=== PATIENT | male | born 1935 | race Hispanic/Latino ===

== ENCOUNTER 2017-01-04 10:14 | Emergency (ER) | payer MEDICARE ==
[2017-01-04 12:03] VITALS: BP 160/78
[2017-01-04] MEDS ORDERED: XYLOCAINE 1% MPF 5 mL INFILTRATI ONE (12:48)
[2017-01-04] MEDS ORDERED: XYLOCAINE 2% INFILTRATI ONE (12:53)
[2017-01-04] MEDS ORDERED: XYLOCAINE 1% 20 mL INFILTRATI ONE (13:07)
[2017-01-04] MEDS ORDERED: TRIPLE ANTIBIOTIC TP ONE (13:23)
--- NOTE | 2017-01-04 13:24 | Emergency Department Report ---
Abscess Boil HPI - HPI Chief Complaint: Skin/Abscess/Foreign Body Stated Complaint: ABCESS ON CHEST Duration: >1 Week Location: Chest Severity: Mild History: Yes Purulent Drainage, No Fever, No Pain, No Numbness, No Foreign Body , No Previous History, No Insect Bite HPI: 81 year old male presents to ED with abscess on mid chest/sternum x3-4 weeks. patient states he had appt with his PCP but his PCP cancelled his appt and sent him to the ED. patient is stable, neurologically intact and in no acute distress. Home Medications: Previous Rx's Medication Instructions Recorded Last Taken Type Metoprolol [Lopressor TAB] 12.5 mg PO BID #60 tablet 10/08/15 Unknown Rx Cephalexin [Keflex] 500 mg PO Q8H #21 cap 01/04/17 Unknown Rx Allergies/Adverse Reactions: Allergies Allergy/AdvReac Type Severity Reaction Status Date / Time No Known Allergies Allergy Verified 01/04/17 11:59 ED Review of Systems ROS: Stated complaint: ABCESS ON CHEST Other details as noted in HPI Constitutional: denies: chills, fever Eyes: denies: eye pain, eye discharge, vision change ENT: denies: ear pain, throat pain Respiratory: denies: cough, shortness of breath, wheezing Cardiovascular: denies: chest pain, palpitations Endocrine: no symptoms reported Gastrointestinal: denies: abdominal pain, nausea, diarrhea Genitourinary: denies: urgency, dysuria Musculoskeletal: denies: back pain, joint swelling, arthralgia Skin: denies: rash, lesions Neurological: denies: headache, weakness, numbness, paresthesias, confusion, abnormal gait, vertigo Psychiatric: denies: anxiety, depression Hematological/Lymphatic: denies: easy bleeding, easy bruising ED Past Medical Hx - Past Medical History Hx Hypertension: Yes Hx Heart Attack/AMI: Yes Hx Congestive Heart Failure: Yes Hx Diabetes: Yes Hx GERD: Yes Additional medical history: high cholesterol - Surgical History Hx Open Heart Surgery: Yes Hx Cholecystectomy: Yes - Social History Smoking Status: Never Smoker Substance Use Type: None - Medications Home Medications: Home Medications Medication Instructions Recorded Confirmed Last Taken Type Metoprolol [Lopressor TAB] 12.5 mg PO BID #60 tablet 10/08/15 Unknown Rx Cephalexin [Keflex] 500 mg PO Q8H #21 cap 01/04/17 Unknown Rx ED Abscess Boil Physical Exam - Exam General: Vital signs noted. No distress. Alert and acting appropriately. Size: 3 cm Exam: Yes Tenderness, Yes Fluctuance, Yes Normal Neurologic Exam, Yes Normal Circulation, No Surrounding Cellulites/Erythema, No Lymphangitis, No Crepitation , No Heart Murmur Exam: abscess present on mid chest/sternum with mild purulent drainage present from head of abscess. I & D Note - I & D Note I & D Note: area prepped with betadine. 1% lidocaine utilized for numbing purposes. moderate amount of drainage obtained. patient tolerated well. wound shallow and unable to pack after I&D. sterile dressing applied with abx ointment. ED Course Vital Signs 01/04/17 12:00 Temperature 98.2 F Pulse Rate 65 Respiratory 16 Rate Blood Pressure 160/78 O2 Sat by Pulse 94 Oximetry Critical care attestation.: If time is entered above; I have spent that time in minutes in the direct care of this critically ill patient, excluding procedure time. ED Medical Decision Making - Medical Decision Making 81 year old male presents to ED with abscess on mid chest/sternum. patient has tolerated I&D well. patient will be placed on PO antibiotics and should return to ED for recheck within 2-3 days. patient is stable, neurologically intact and in no acute distress. ED Disposition Clinical Impression: Chest wall abscess Disposition: DC-01 TO HOME OR SELFCARE Is pt being admited?: No Does the pt Need Aspirin: No Condition: Stable Instructions: Abscess (ED) Additional Instructions: Please return to ED within 2-3 days for abscess recheck. Prescriptions: Cephalexin [Keflex] 500 mg PO Q8H #21 cap Referrals: PRIMARY CARE, [Primary Care Provider] - 3-5 Days
== END 2017-01-04 13:51 | disposition home or self-care (01) ==
LOC: ED 10:14
DX: L02.213 Cutaneous abscess of chest wall (principal); I10 Essential (primary) hypertension; I25.2 Old myocardial infarction; I50.9 Heart failure, unspecified; E11.9 Type 2 diabetes mellitus without complications; K21.9 Gastro-esophageal reflux disease without esophagitis; E78.5 Hyperlipidemia, unspecified
CPT/HCPCS: A6250

== ENCOUNTER 2017-03-21 11:17 | Emergency (ER) | payer MEDICARE ==
[2017-03-21 12:25] VITALS: BP 141/66
[2017-03-21 13:29] LABS: Basophils % (Auto) 0.4 % (0.0-1.8); Eosinophils # (Auto) 0.2 K/mm3 (0.0-0.4); Eosinophils % (Auto) 1.7 % (0.0-4.3); Hematocrit 43.3 % (35.5-45.6); Hemoglobin 14.5 gm/dl (11.8-15.2); Lymphocytes # (Auto) 2.3 K/mm3 (1.2-5.4); Lymphocytes % (Auto) 25.2 % (13.4-35.0); Mean Corpuscular HGB Conc 34 % (32-34); Mean Corpuscular Hemoglobin 30 pg (28-32); Mean Corpuscular Volume 89 fl (84-94); Monocytes # (Auto) 0.9 K/mm3 (0.0-0.8); Monocytes % (Auto) 10.1 % (0.0-7.3); Platelet Count 168 K/mm3 (140-440); Red Blood Count 4.84 M/mm3 (3.65-5.03); Red Cell Distribution Width 13.9 % (13.2-15.2)
[2017-03-21 13:43] LABS: BUN/Creatinine Ratio 13; Blood Urea Nitrogen 12 mg/dL (9-20); Calcium 9.2 mg/dL (8.4-10.2); Hemolysis Index 2
[2017-03-21] MEDS ORDERED: XYLOCAINE 1% MPF 5 mL INFILTRATI ONE (16:39)
[2017-03-21] MEDS ORDERED: ROCEPHIN IM ONE (16:39)
--- NOTE | 2017-03-21 17:27 | XRay Report ---
FINAL REPORT EXAM: XR HAND 3+V RT HISTORY: right hand/index finger poss infected TECHNIQUE: Three views of the right hand PRIORS: None. FINDINGS: There is narrowing of the radiocarpal joint space. Degenerative changes are identified at the trapezium 1st metacarpal joint with joint space narrowing and marginal osteophyte there are degenerative changes throughout the interphalangeal joints of the hand. This is most prominent at the DIP joint of the 3rd finger were there is flexion deformity present. No acute fracture identified. No dislocation seen. 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
--- NOTE | 2017-03-21 21:31 | Emergency Department Report ---
Abscess Boil HPI - HPI Chief Complaint: Skin/Abscess/Foreign Body Stated Complaint: BUG BITE Duration: >1 Week Location: Upper Extremity Severity: Mild History: Yes Pain, Yes Purulent Drainage, Yes Insect Bite, No Fever, No Numbness , No Foreign Body, No Previous History HPI: 82 year old male presents to ED with abscess to right index finger x10 days. patient states he think he was bit by an insect and he attempted to drain it this morning. patient states when he cut abscess open it drained clear and purulent drainage. patient is stable, neurologically intact and in no acute distress. Home Medications: Previous Rx's Medication Instructions Recorded Last Taken Type Metoprolol [Lopressor TAB] 12.5 mg PO BID #60 tablet 10/08/15 Unknown Rx Cephalexin [Keflex] 500 mg PO Q8H #21 cap 01/04/17 Unknown Rx Cephalexin [Keflex] 500 mg PO TID #21 cap 03/21/17 Unknown Rx Allergies/Adverse Reactions: Allergies Allergy/AdvReac Type Severity Reaction Status Date / Time No Known Allergies Allergy Verified 01/04/17 11:59 ED Review of Systems ROS: Stated complaint: BUG BITE Other details as noted in HPI Constitutional: denies: chills, fever Eyes: denies: eye pain, eye discharge, vision change ENT: denies: ear pain, throat pain Respiratory: denies: cough, shortness of breath, wheezing Cardiovascular: denies: chest pain, palpitations Endocrine: no symptoms reported Gastrointestinal: denies: abdominal pain, nausea, diarrhea Genitourinary: denies: urgency, dysuria Musculoskeletal: denies: back pain, joint swelling, arthralgia Skin: rash, change in color. denies: lesions Neurological: denies: headache, weakness, paresthesias Psychiatric: denies: anxiety, depression Hematological/Lymphatic: denies: easy bleeding, easy bruising ED Past Medical Hx - Past Medical History Previous Medical History?: Yes Hx Hypertension: Yes Hx Heart Attack/AMI: Yes Hx Congestive Heart Failure: Yes Hx Diabetes: Yes Hx GERD: Yes Additional medical history: high cholesterol - Surgical History Past Surgical History?: Yes Hx Open Heart Surgery: Yes Hx Cholecystectomy: Yes - Social History Smoking Status: Never Smoker Substance Use Type: Prescribed - Medications Home Medications: Home Medications Medication Instructions Recorded Confirmed Last Taken Type Metoprolol [Lopressor TAB] 12.5 mg PO BID #60 tablet 10/08/15 Unknown Rx Cephalexin [Keflex] 500 mg PO Q8H #21 cap 01/04/17 Unknown Rx Cephalexin [Keflex] 500 mg PO TID #21 cap 03/21/17 Unknown Rx ED Abscess Boil Physical Exam - Exam General: Vital signs noted. No distress. Alert and acting appropriately. Size: 1 cm Exam: Yes Tenderness, Yes Fluctuance, Yes Normal Neurologic Exam, Yes Normal Circulation, No Surrounding Cellulites/Erythema, No Lymphangitis, No Crepitation , No Heart Murmur Exam: 1cm abscess/erythema present on dorsum proximal of right index finger. abscess currently open and draining ED Course Vital Signs 03/21/17 12:21 Temperature 97.4 F L Pulse Rate 77 Respiratory 20 Rate Blood Pressure 141/66 O2 Sat by Pulse 96 Oximetry Critical care attestation.: If time is entered above; I have spent that time in minutes in the direct care of this critically ill patient, excluding procedure time. ED Medical Decision Making - Lab Data Result diagrams: 03/21/17 13:10 03/21/17 13:10 - Radiology Data Radiology results: report reviewed XR right hand osteoarthritic changes. - Medical Decision Making 82 year old male presents to ED with right proximal index finger redness/ abscess after possible insect bite. patient has performed I&D on self at home prior to ED visit. patient will be given IM abx in ED and PO antibiotics for home and agrees and understands to return to ED or urgent care or PCP within 2- 3 days for wound recheck. patient is stable, neurologically intact and in no acute distress. ED Disposition Clinical Impression: Abscess of index finger Disposition: - TO HOME OR SELFCARE Is pt being admited?: No Does the pt Need Aspirin: No Condition: Stable Instructions: Abscess (ED) Prescriptions: Cephalexin [Keflex] 500 mg PO TID #21 cap Referrals: PRIMARY CARE, [Primary Care Provider] - 3-5 Days Forms: Work/School Release Form(ED)
== END 2017-03-21 17:36 | disposition home or self-care (01) ==
LOC: ED 11:17
DX: L02.511 Cutaneous abscess of right hand (principal); I10 Essential (primary) hypertension; I25.2 Old myocardial infarction; E11.9 Type 2 diabetes mellitus without complications; K21.9 Gastro-esophageal reflux disease without esophagitis
CPT/HCPCS: 36415; 73130; 80048; 85025; 96372; 99284; J0696